=== PATIENT | male | born 1990 | race Caucasian/White ===

== ENCOUNTER 2017-09-13 22:14 | Emergency (ER) | payer OTHER, SELFPAY ==
[2017-09-13 22:14] VITALS: BP 152/96; PULSE 69; RESP 16; TEMP 36.9; O2SAT 98; BMI 38.0
--- NOTE | 2017-09-13 22:18 | EKG12_ITS ---
Test Reason : CP Blood Pressure : / mmHG Vent. Rate : 087 BPM Atrial Rate : 087 BPM P-R Int : 150 ms QRS Dur : 084 ms QT Int : 336 ms P-R-T Axes : 047 073 043 degrees QTc Int : 404 ms Normal sinus rhythm Normal ECG Confirmed by RAYMOND STAUFFER, YUNIEL ([id number]), pictures editor ARNIE PENA ([id number]) on 09/15/2017 11:51:17 AM Referred By: SONYA Confirmed By:YUNIEL ANDRADE MD
[2017-09-13 22:31] VITALS: BP 153/97; PULSE 89; RESP 18; O2SAT 93
[2017-09-13 22:35] LABS: Absolute Lymphocyte Count 1.82 X10^3/ul (0.83-4.51); Absolute Neutrophil Count 4.7 X10^3/uL (2.0-7.7); Basophil# 0.04 X10^3/uL; Basophil% 0.5 % (0-1); Eosinophil# 0.14 X10^3/uL; Eosinophils% 1.9 % (0-5); Hematocrit 47.4 % (40-54); Hemoglobin 16.2 g/dl (13.0-16.5); Lymphocyte # 1.82 X10^3/ul (4.0); Lymphocyte % 24.5 % (19-41); Mean Corp Hgb Conc 34.2 g/gl (32-36); Mean Corpuscular Hgb 30.9 pg (27.0-32.0); Mean Corpuscular Volume 90.5 fL (80-94); Mean Platelet Vol. 9.4 fl (6.2-12.0); Monocyte# 0.71 X10^3/uL; Monocyte% 9.5 % (0-10); Neutrophil # 4.71 X10^3/uL (2.7-7.7); Neutrophil % 63.3 % (47-70); POSITIVE COUNT NO; POSITIVE DIFFERENTIAL NO; POSITIVE MORPHOLOGY NO; Platelet Count 279 K/mm3 (150-450); RBC Distribution Width CV 12.6 % (11.6-14.6); RBC Distribution Width SD 41.3 fl (35.1-43.9); Red Blood Count 5.24 M/mm3 (4.6-6.2); White Blood Count 7.4 K/mm3 (4.4-11.0)
[2017-09-13 22:49] LABS: Anion Gap 6 (5-15); BUN 20 mg/dL (7-18); BUN/Creat Ratio 15.2 RATIO (10-20); Calcium,Total 9.5 mg/dL (8.5-10.1); Chloride 106 mmol/L (98-107); Creatinine, Serum 1.32 mg/dL (0.70-1.30); EST Glomerular Filtration Rate 69 mL/min (>60); Est Glom Filt Rate - Afr Amer 84 mL/min (>60); Estimated Creatinine Clearance 82.05 ml/min; Glucose 90 mg/dL (74-106); Potassium 3.8 mmol/L (3.5-5.1); Sodium Level 141 mmol/L (136-145)
--- NOTE | 2017-09-13 22:55 | RAD_ITS ---
STUDY: X-RAY CHEST REASON FOR EXAM: Male, 26 years old. Chest pain TECHNIQUE: Frontal and lateral views of the chest were obtained. COMPARISON: None. FINDINGS: The lungs are adequately aerated. There are no focal airspace opacities. There is no demonstrated pleural abnormality. The cardiac silhouette is normal in size. The mediastinum and hilar regions are unremarkable. Normal visualized pulmonary arteries. Normal visualized aortic arch and descending thoracic aorta. The thoracic spine is unremarkable. The visualized ribs, clavicles, and shoulders are unremarkable. There is no demonstrated abnormality of the visualized upper abdomen. RAD/Chest PA and Lateral IMPRESSION: No acute cardiopulmonary abnormalities. Electronically Signed: Kamille Estrada MD at 23:53 EDT Tel Direct: [phone], Service support ,
[2017-09-13 23:17] VITALS: BP 126/70; PULSE 91; RESP 16; O2SAT 97; O2SAT 98
--- NOTE | 2017-09-13 23:30 | ED.VISSUMM ---
- ER Visit Summary Date of Service: 09/13/17 Chief Complaint: [chest pain] History of Present Illness: The patient is a 26 M [the presents with 1 week of intermittent chest tightness. He denies any shortness of breath or exertional symptoms. He states when he goes to sleep at night he has a suffocating type feeling and then wakes up. He does not currently follow with a primary doctor. He denies any chest pain or shortness of breath currently. He has no cardiac history and no family history of cardiac disease. No DVT or PE history or risk factors. He overall appears well and in no acute distress. No other cardiac associated symptoms. No other complaints.] Physical Examination: [General: The patient appears well and in no apparent distress. Patient is resting comfortably on cart. Skin: Warm, dry, no pallor noted. No rash. Head: Normocephalic, atraumatic Neck: Supple, nontender. ENT: Moist mucus membranes, pharynx within normal limits. Cardiovascular: Regular Rate and Rhythm, no gallups or rubs Respiratory: Patient is in no distress, no accessory muscle use, lungs are clear to auscultation, no wheezing, rales or rhonchi Musculoskeletal: normal ROM, no deformity, no tenderness, no swelling. 2+ radial and DP pulses symmetric. GI: No tenderness to palpation, no masses appreciated. No rebound, guarding, or rigidity noted. Neurological: A&O, normal strength and sensation. Psychiatric: Cooperative] Test Results: [EKG shows sinus rhythm with a rate of 87, no acute ischemic changes or arrhythmia. Normal intervals. No heart blocks. Labs obtained in triage include CBC and BMP that were within normal limits. Troponin was negative. Creatinine was 1.32. Chest x-ray shows no acute process on my evaluation. ] Emergency Department Course and Treatment: [Patient is at low risk for MACE given Heart Score of 0. He is PERC negative. I do not feel his presentation is consistent with ACS, PE, or dissection. He does describe some symptoms possibly consistent with sleep apnea. I will refer him to a primary provider for further evaluation and instructed him to return to the emergency department with any new or worsening symptoms. Patient and family understand and are agreeable with this plan of care. Patient was discharged home in stable condition.] Treatment Plan: [see above] Disposition: [discharge home] Impression: [Chest pain, nonspecific] This note was generated with [employer] dictation software. It may contain incorrect words, spelling, and punctuation that were not noted in review of the chart prior to signing ED Disposition - Plan for ED Patient: Disposition: Home or Assisted Living Chief Complaint: Chest Pain Instructions: ED Chest Pain Atypical Unkn Cause Referrals: Kay Aponte MD [STAFF PHYSICIAN] -
[2017-09-13 23:39] VITALS: BP 128/74; PULSE 87; RESP 16; O2SAT 97
== END 2017-09-13 23:46 | disposition home or self-care (01) ==
PROVIDERS: Emergency Provider Emergency Medicine
DX: R07.89 Other chest pain (principal)
CPT/HCPCS: 71045; 71046; 80048; 84484; 85025; 93005; 99284